=== PATIENT | female | born 1965 | race Hispanic/Latino ===

== ENCOUNTER 2022-11-14 21:39 | Emergency (ER) | payer OTHER ==
[~2022-11-14] VITALS: Ht 162.6 cm; Wt 47.2 kg
[2022-11-14] MEDS ORDERED: PRED20TA3 PO (22:13)
[2022-11-14] MEDS ORDERED: NIRM1TAB PO (22:13)
[2022-11-14 22:19] VITALS: BP 135/86
== END 2022-11-14 22:28 | disposition home or self-care (01) ==
LOC: EDH 21:39
DX: U07.1 COVID-19 (principal); I10 Essential (primary) hypertension